=== PATIENT | female | born 1965 | race Caucasian/White ===

== ENCOUNTER 2024-10-28 19:01 | Emergency (ER) | payer BC, SELFPAY ==
--- NOTE | 2024-10-28 | ECG_ITS ---
Test Reason : PALPITATION Blood Pressure : */* mmHG Vent. Rate : 64 BPM Atrial Rate : 64 BPM P-R Int : 152 ms QRS Dur : 90 ms QT Int : 420 ms P-R-T Axes : 55 38 47 degrees QTcB Int : 433 ms Normal sinus rhythm Nonspecific ST abnormality Abnormal ECG No previous ECGs available Referred By: Generic ED Physician Electronically Signed By: ADAM MUNOZ MD
[2024-10-28 19:12] VITALS: BP 182/79; BP 194/84; PULSE 62; PULSE 66; RESP 18; TEMP 36.7; O2SAT 100; BMI 25.7
[2024-10-28 19:21] LABS: MANUAL DIFF FLAG NO
[2024-10-28 19:31] LABS: Basophils Percent Auto 0.6 % (0-2); Eosinophils Absolute Auto 0.1 X10*3/uL (0.0-0.4); Eosinophils Percent Auto 1.2 % (0-4); Hematocrit 35.7 % (37.0-47.0); Imm Gran Abs Auto 0.01 X10*3/uL (0.00-0.03); Imm Gran Pct Auto 0.1 % (0.0-0.4); Lymphocytes Absolute Auto 1.9 X10*3/uL (1.2-4.9); Lymphocytes Percent Auto 28.7 % (20-40); Mean Corpuscular HGB Conc 33.6 g/dl (31.0-35.0); Mean Corpuscular Hemoglobin 28.1 pg (27.0-33.0); Mean Corpuscular Volume 83.6 fL (80.0-98.0); Mean Platelet Volume 10.5 fL (9.4-12.3); Monocytes Absolute Auto 0.6 X10*3/uL (0.1-1.2); Monocytes Percent Auto 8.4 % (2-11); Neutrophils Absolute Auto 4.1 x10*3/uL (2.0-8.3); Platelet Count 251 X10*3/uL (160-400); Red Blood Count 4.27 X10*6/uL (4.20-5.50); Red Cell Distribution Width 12.1 % (11.0-16.0); White Blood Count 6.8 X10*3/uL (4.8-10.8)
[2024-10-28 19:46] LABS: Alanine Aminotransferase 37 U/L (0-31); Albumin Level 4.4 g/dL (3.5-5.0); Alkaline Phosphatase 56 U/L (39-117); Anion Gap 10 (12-20); Aspartate Amino Transferase 28 U/L (5-31); Bilirubin Total 0.4 mg/dL (0.0-1.0); Blood Urea Nitrogen 10 mg/dL (9-16); Calcium 9.3 mg/dL (8.4-10.2); Carbon Dioxide 25 mmol/L (22-29); Chloride 108 mmol/L (96-108); Creatinine Clr Calc Pharmacy 75.6; Estimated Glomerular Filt Rate > 60; Glucose Random 92 mg/dL (60-115); Potassium 3.8 mmol/L (3.3-5.1); Sodium 139 mmol/L (135-145); Total Protein 7.8 g/dL (6.5-8.0)
[2024-10-28 19:54] LABS: Troponin-I High Sensitivity < 2.7 ng/L (<3.5-17.0)
[2024-10-28 20:35] VITALS: BP 146/76; PULSE 64; RESP 14; TEMP 36.8; O2SAT 98
--- NOTE | 2024-10-28 20:43 | ED.GENADULT ---
HPI - General Adult General Chief complaint: General Medical Stated complaint: palpataions Time Seen by Provider: 10/28/24 20:38 History of Present Illness ED Provider: TIESHA LILLY MD HPI narrative: 59-YEAR-OLD FEMALE PRESENTING WITH PALPITATIONS. 17:00 ONSET. NO CARDIAC HISTORY. Related Data Previous Rx's ?Medication ?Instructions ?Recorded metoprolol tartrate 25 mg tablet 12.5 mg (1/2 x 25 mg) PO BID 30 10/28/24 days #60 tabs Allergies Allergy/AdvReac Type Severity Reaction Status Date / Time No Known Allergies Allergy Verified 10/28/24 19:22 [No Known Allergies*] [facility] Social History Social History Advance Directives: No Advance Directives Information Provided: No Do you have a plan to hurt others: No Plan Physical Exam ED Vital Signs: Vital Signs - 24 hr 10/28/24 19:12 10/28/24 20:35 Temperature 98.0 F 98.2 F Pulse Rate 62 64 Respiratory Rate 18 14 Blood Pressure 182/79 H 146/76 H Pulse Oximetry 100 98 Oxygen Delivery Method Room Air Room Air BMI result Body Mass Index 25.7 Const Other: EXAM: Gen: Alert, awake, well appearing, well hydrated. Head: Atraumatic Eyes: Anicteric, Normal conjunctiva. ENT: Moist mucosa, no pallor. ? Neck: Supple. Respiratory: Breathing comfortably, No distress.Clear to auscultation bilaterally, symmetric chest expansion, No wheeze, rales, ronchi. Cardiovascular: Regular rate and rhythm. No murmurs or rub. Well perfused periphery, warm extremities. No edema. ? Abdominal: Soft, no objective distension. No palpable masses or obvious organomegaly. No focal tenderness, no guarding, no rebound tenderness or other peritoneal findings. : No flank tenderness. Neuro: Alert. Gross movement of all extremities intact. ? Vital signs: See flowsheet Procedures Procedure Narrative Procedure Narrative: EMERGENCY ULTRASOUND INTERPRETATION-Limited Echocardiography [This study was ordered, performed, and interpreted by myself. The study reveals: Impression: NORMAL LV FUNCTION, NO RV DYSFUNCTION, NO PERICARDIAL EFFUSION] [Emergent Cardiac for Indication: Views Used: PLAX, PSSA, A4, SX, IVC Pericardial Effusion/Tamponade Findings: NONE RV Dilation (> LV diam in 4ch apical): NONE Global LV Fxn: NORMAL IVC Dilation and Resp Variation: NORMAL Performed by: MD Maxx Images were stored on EMR through [employer] image archive software. CPT:17093] Medical Decision Making Medical Decision Making [facility] Narrative: [age] female 3 cup per day coffee drinker, no medical history no meds. No drug use. She felt very brief palpitation that is clinically suggestive of premature atrial or premature ventricular beat. She did not have chest pain or typical anginal symptoms. She looks well clinically and is hemodynamically stable she is in sinus rhythm and has no ischemia on ECG. Intervals are normal of her cardiogram. Several hour telemetry monitoring did not reveal any dysrhythmia, pauses or premature atrial or ventricular contractions though I suspect this was the etiology of her symptoms earlier tonight. Bedside echo is grossly normal without pericardial effusion, LV dysfunction or any other gross abnormality seen. We have prescribed her low-dose of metoprolol and she does not have a primary doctor but we have referred her to 1 as she may need event monitor. Strict return precautions were described. Lab Data [facility] Lab Attestation statement: I reviewed the patient's lab results. 10/28/24 19:11 10/28/24 19:11 Labs: Lab Results 10/28/24 10/28/24 Range/Units 19:11 21:57 WBC 6.8 (4.8-10.8) X10*3/uL RBC 4.27 (4.20-5.50) X10*6/uL Hgb 12.0 (12.0-16.0) g/dl Hct 35.7 L (37.0-47.0) % MCV 83.6 (80.0-98.0) fL MCH 28.1 (27.0-33.0) pg MCHC 33.6 (31.0-35.0) g/dl RDW 12.1 (11.0-16.0) % Plt Count 251 (160-400) X10*3/uL MPV 10.5 (9.4-12.3) fL Immature Gran % (Auto) 0.1 (0.0-0.4) % Neut % (Auto) 61.0 (45-73) % Lymph % (Auto) 28.7 (20-40) % Young % (Auto) 8.4 (2-11) % Eos % (Auto) 1.2 (0-4) % Baso % (Auto) 0.6 (0-2) % Lymph # (Auto) 1.9 (1.2-4.9) X10*3/uL Young # (Auto) 0.6 (0.1-1.2) X10*3/uL Eos # (Auto) 0.1 (0.0-0.4) X10*3/uL Baso # (Auto) 0.0 (0.0-0.2) X10*3/uL Abs Immat Gran (auto) 0.01 (0.00-0.03) X10*3/uL Absolute Neuts (auto) 4.1 (2.0-8.3) x10*3/uL Absolute Nucleated RBC 0.000 (0.0-0.012) X10*3/uL Nucleated RBC % (auto) 0.0 (0.0-0.2) /100WBC Sodium 139 (135-145) mmol/L Potassium 3.8 (3.3-5.1) mmol/L Chloride 108 (96-108) mmol/L Carbon Dioxide 25 (22-29) mmol/L Anion Gap 10 L (12-20) BUN 10 (9-16) mg/dL Creatinine 0.75 (0.5-1.4) mg/dL Estim Creat Clear Calc 75.6 Estimated GFR > 60 Random Glucose 92 (60-115) mg/dL Calcium 9.3 (8.4-10.2) mg/dL Magnesium 2.1 (1.6-2.6) mg/dL Total Bilirubin 0.4 (0.0-1.0) mg/dL AST 28 (5-31) U/L ALT 37 H (0-31) U/L Alkaline Phosphatase 56 (39-117) U/L Troponin I High Sens < 2.7 < 2.7 (<3.5-17.0) ng/L Total Protein 7.8 (6.5-8.0) g/dL Albumin 4.4 (3.5-5.0) g/dL TSH 1.61 (0.32-4.0) uIU/mL Independent Interpretation I performed an independent interpretation of an: EKG Interpretation: SINUS RHYTHM RATE 64 QTC 433, NO ACUTE ISCHEMIC CHANGES. Discharge Plan Discharge Clinical Impression: Palpitation Patient Disposition: Home, Self-Care Instructions: Heart Palpitations (ED), Premature Ventricular Contractions (ED), Premature Atrial Contractions (ED) Additional Instructions: DISCHARGE DIAGNOSES: Palpitations we suspect you may have had premature atrial contraction or premature ventricular contraction beats causing your symptoms HISTORY OF PRESENTATION: Intermittent isolated strong palpitation EMERGENCY DEPARTMENT COURSE,TESTS, TREATMENTS: While in the ED today we monitor your heart which was in sinus rhythm this is a normal rhythm for several hours with no events. We checked her electrolytes, thyroid panel this was all normal and reassuring. DISCHARGE MEDICATIONS: We have prescribed a low-dose beta sourav take this daily. If you feel like this is affecting your exercise capacity or you feel significantly depressed or with decreased energy you can stop taking this in anytime this is simply medication for symptomatic relief of potential underlying premature beats FOLLOW-UP: ?Call your primary or general physician soon as possible to discuss your symptoms, your ED visit and to discuss follow up plans Call for primary doctor soon as he possibly can we would like her to be put on a cardiac event monitor As we discussed you can try the internal medicine practice of Dr. Talavera who has retired but has new colleague taking over who has within the [facility] system. The phone number there is [phone] INSTRUCTIONS ?& RETURN PRECAUTIONS: If any symptoms change first call your primary physician, if it is after-hours your primary doctors office should have a provider program production specialist you can speak with. If the symptoms are severe or very concerning to you then call 911 or return to the ED. Return to the ED for severe chest pain, shortness of breath, persistent or severe palpitations or any other concerning symptoms that we discussed Tiesha Lilly MD Emergency Physician [facility] Prescriptions: New metoprolol tartrate 25 mg tablet 12.5 mg PO BID 30 Days Qty: 60 0RF Interventions: ED Discharge Assessment Last Done: 10/28/24 23:17 Discharge Date/Time: 10/28/24 23:17 Print Language: Danish
[2024-10-28 22:23] LABS: Magnesium 2.1 mg/dL (1.6-2.6); Troponin-I High Sensitivity < 2.7 ng/L (<3.5-17.0)
[2024-10-28 22:37] LABS: Thyroid Stimulating Hormone 1.61 uIU/mL (0.32-4.0)
[2024-10-28 22:42] VITALS: BP 125/62; PULSE 67; RESP 15; TEMP 36.4; O2SAT 97
[2024-10-28 23:17] VITALS: BP 125/62; PULSE 67; RESP 15; TEMP 36.4; O2SAT 97
== END 2024-10-28 23:17 | disposition home or self-care (01) ==
PROVIDERS: Emergency Provider Emergency Medicine
DX: R00.2 Palpitations (principal)
CPT/HCPCS: 36415; 80053; 83735; 84443; 84484; 85025; 93005; 99283; 99284

== ENCOUNTER → 2024-10-28 19:14 | Outpatient (BNV) | payer BC, SELFPAY | PROVIDERS: Emergency Provider Emergency Medicine; Visit Provider Internal Medicine Cardiovascular Disease | DX: R00.2 Palpitations (principal) | CPT/HCPCS: 93010 ==